=== PATIENT | male | born 1955 | race Caucasian/White ===

== ENCOUNTER 2021-08-25 14:08 | Observation (INO) ==
[2021-08-25 14:45] LABS: Basophils # (auto) 0.05 K/uL (0-0.2); Basophils % (auto) 0.9 %; Eosinophils # (auto) 0.02 K/uL (0-0.5); Eosinophils % (auto) 0.4 %; Hematocrit (blood only) 41.2 % (42-52); Immature Granulocytes # (auto) 0.01 K/uL (0.00-0.02); Immature Granulocytes % (auto) 0.2 %; Lymphocytes % (auto) 17.6 %; Mean Corpuscular Hemoglobin 30.8 pg (25-34); Mean Corpuscular Volume 90.5 fL (80-100); Mean Platelet Volume 12.1 fL (7.4-10.4); Monocytes # (auto) 0.39 K/uL (0.11-0.59); Monocytes % (auto) 6.9 %; Platelet Count 171 K/uL (130-400); RDW Coefficient of Variation 13.4 % (11.5-14.5); RDW Standard Deviation 44.4 fL (36.4-46.3); Red Blood Count 4.55 M/uL (4.7-6.1); White Blood Count 5.67 K/uL (4.8-10.8)
[2021-08-25 14:54] LABS: Partial Thromboplastin Time 27.1 Seconds (21.0-31.0)
[2021-08-25 15:08] LABS: Troponin I < 0.03 ng/ml (0-0.04)
--- NOTE | 2021-08-25 15:12 | XRay Report ---
TWO VIEW CHEST CLINICAL HISTORY: Atypical chest pain. FINDINGS: PA and lateral chest radiographs are obtained. No prior studies are available for compariso n at the time of dictation. The cardiomediastinal silhouette is unremarkable. The lungs and pleural spaces are clear. There is no pneumothorax. The bony thorax appears intact. There is mild S-shaped t horacolumbar scoliosis. IMPRESSION: No active disease in the chest. ACT 112: Negative or not required by law. Electronically signed by: Rubens Amaral M.D. 08/25/2021 3:11 PM
[2021-08-25 15:16] LABS: Alanine Aminotransferase 18 U/L (7-52); Albumin Globulin Ratio 1.6 (0.9-2); Albumin Level 4.2 gm/dl (3.4-5.0); Alkaline Phosphatase 64 U/L (34-104); Anion Gap 7 (3-11); Aspartate Aminotransferase 18 U/L (13-39); BUN Creatinine Ratio 26.6 (10-20); Bilirubin,Total 0.5 mg/dl (0.2-1.0); Blood Urea Nitrogen 21 mg/dl (6-23); Calcium 9.2 mg/dl (8.5-10.1); Carbon Dioxide 28 mmol/L (21-32); Chloride 105 mmol/L (98-107); Creatinine Clr Calc Pharmacy 99.8 ml/min; Est GFR (African American) 109.2 ml/min; Est GFR (Non-African American) 94.2 ml/min; Globulin 2.6 gm/dl (2.5-4.0); Glucose 110 mg/dl (70-99(Fasting)); Potassium 3.8 mmol/L (3.5-5.1); Sodium 140 mmol/L (136-145); Total Protein 6.8 gm/dl (6.0-8.3)
--- NOTE | 2021-08-25 16:09 | Electrocardiogram Report ---
Test Reason : Blood Pressure : / mmHG Vent. Rate : 064 BPM Atrial Rate : 064 BPM P-R Int : 160 ms QRS Dur : 096 ms QT Int : 386 ms P-R-T Axes : 084 054 061 degrees QTc Int : 398 ms Sinus rhythm with frequent Premature ventricular complexes Possible Left atrial enlargement Borderline ECG No previous ECGs available Confirmed by Bharath Raymond ([id number]) on 08/25/2021 4:08:39 PM Referred By: Confirmed By:Emory Raymond
[2021-08-25] MEDS ORDERED: NITROGLYCERIN 2% OINTMENT 30GM TUBE EXT STA (17:36)
[2021-08-25] MEDS ORDERED: ASPIRIN CHEW 324 MG PO STA (17:36)
--- NOTE | 2021-08-25 17:45 | Emergency Department Note ---
Impression & Plan Precordial chest pain, SOB (shortness of breath), Fatigue ED Provider Note NAME: KAYLEIGH RINALDI AGE: 65 SEX: M : 1955 ARRIVES VIA: Walk-In INFORMANT: [Patient] ED PROVIDER(S): [Rubens Larsen MD] CHIEF COMPLAINT: Chest pain, fatigue HISTORY OF PRESENT ILLNESS: The patient is a 65-year-old male who presents to the ER with several weeks of fatigue, shortness of breath and some chest discomfort. He notices exertion makes things a bit worse. The patient has a lot of cardiac risk factors. He has never though been diagnosed with coronary disease. The patient spoke with his doctors office today and was referred to the ER. His doctor's office did increase his blood pressure medication today over the phone. The patient has noticed some irregular heartbeats, almost some extra beats. Today, for the first time, after shoveling snow, he had some pressure in his chest which now seems to be gone. He was quite tired when he was shoveling snow and more short of breath than he should have been. The patient's father had an [place], patient has a strong family history of heart disease. He has high cholesterol and high blood pressure. Patient quit smoking 40 years ago. REVIEW OF SYSTEMS: See HPI for pertinent positives and negatives. A total of ten systems were reviewed and were otherwise negative. PMHx/PSHx: See Below SOCIAL HISTORY: See Below. PHYSICAL EXAM: GENERAL: Patient is in no acute distress. HEENT: No acute trauma, normocephalic atraumatic, mucous membranes moist, no nasal congestion, no scleral icterus. NECK: No stridor, no adenopathy, no meningismus, trachea is midline. LUNGS: Clear to auscultation bilaterally, no wheeze, no rhonchi, breath sounds equal. HEART: Without murmurs gallops or rubs, regular rate and rhythm. ABDOMEN: Soft, nontender, bowel sounds positive, no hernias, no peritonitis. EXTREMITIES: No cyanosis or edema, full range of motion of all the joints without pain or difficulty, no signs for acute trauma. NEUROLOGIC: Oriented x 3, no acute motor or sensory deficits, no focal weakness. SKIN: No rash, no jaundice, no diaphoresis. DIFFERENTIAL DIAGNOSIS: Cardiac ischemia, aortic dissection, pulmonary embolism, pneumothorax, pneumonia, pericarditis, myocarditis, esophageal rupture, GERD, cholecystitis, pancreatitis, musculoskeletal, as well as other pathologies. EMERGENCY DEPARTMENT COURSE/PROCEDURES: ECG: Indication was chest pain and shortness of breath. The ECG shows a sinus rhythm with PVCs. The rate is 64. There is no acute ST elevation. The QTc is 390. Continuous Cardiac Monitoring: An order was placed for continuous cardiac monitoring. The monitor shows a rate of 63 with sinus rhythm with PVCs. MEDICAL DECISION MAKING: There is no leukocytosis or concerning anemia. There is a normal platelet count. No coagulopathy. No significant electrolyte abnormality or kidney failure. No concerning liver enzyme elevation. Covid testing returned negative. ECG shows a sinus rhythm with PVCs, no obvious ischemia. Cardiac enzyme testing x1 is not consistent with acute cardiac injury. Chest x-ray does not show pneumonia or mediastinal widening. The patient presents with some increasing fatigue, some shortness of breath and some chest pressure. He does have multiple cardiac risk factors. The patient was given oral aspirin and nitroglycerin paste. He is currently r esting comfortably. I did speak with cardiology about the patient's presentation. A hospital stay and further cardiac work-up was felt warranted. I talked to the patient about his findings, I spoke with case management. The on-call hospitalist was consulted. Past Med/Surg History Medical History Asthma HX OF CHILDHOOD ASTHMA, PT STATES IF STILL PRESENT, WELL CONTROLLED. Family history of reaction to anesthesia PT STATES THAT HIS BROTHER AT AGE 16 (1963) DURING ANESTHESIA INDUCTION. PT STATES THAT HE HAD BEEN SICK WITH NON-STOP VOMITING AND THE PLAN WAS TO DO AN OPEN EXP LAP, BUT PATIENT PASSED AT INDUCTION. PT HAS HAD MULTIPLE PROCEDURES WITH BOTH MAC AND GA WITH NO COMPLICATION. PT STATES HIS BROTHER'S CERTIFICATE STATES CAUSE OF "DANGEROUS VIRUS". NO AUTOPSY WAS DONE PER PARENTS REQUEST. GERD (gastroesophageal reflux disease) Health care maintenance Hyperlipidemia Hypertension Surgical History History of colonoscopy History of foot surgery A TEENAGER History of tonsillectomy Family History Father Myocardial infarction Grandmother (Maternal) Kidney malignancy Mother Kidney malignancy Uncle Lung cancer Social History Smoking Status: Never smoker Second Hand Exposure: No; Hx Alcohol Use: No Hx Substance Use: No Preferred Language: Hong Konger Communication Ability: Effective Shaper And Presser Required: No Beliefs That Will Affect Care: None marital status: Current Living Situation: Spouse current occupational status: employed Feels Safe at Home: Yes Seatbelt Use: always Assistive Devices: Glasses Allergies Allergies Allergy/AdvReac Type Severity Reaction Status Date / Time No Known Allergies Allergy Verified 08/25/21 18:21 Home Meds Home Medications Medication Instructions Recorded Confirmed ascorbic acid (vitamin C) 1,000 mg 1 tab PO QAM 08/03/18 08/25/21 tablet (Vitamin C) rxmraywz-xja-wtyko acid 300 1 tab PO DAILY 06/12/19 08/25/21 mcg-lycopene 600 mcg-lutein 300 mcg tablet (Centrum Silver Men) aspirin 81 mg tablet,delayed 81 mg PO DAILY 08/25/21 08/25/21 release (Aspirin Low Dose) cholecalciferol (vitamin D3) 25 25 mcg PO DAILY 08/25/21 08/25/21 mcg (1,000 unit) tablet (Vitamin D3) Previous Rx's Medication Instructions Recorded lisinopril 5 mg tablet 5 mg PO DAILY #30 tab 06/25/21 Results & Data (ED) Vital Signs Vital Signs - 24 hr 08/25/21 14:15 08/25/21 17:15 08/25/21 17:30 Temperature 37.1 C Temperature Source Temporal Artery Scan Pulse Rate 68 64 63 Pulse Rate from SpO2 Sensor 58 L 69 Respiratory Rate 18 24 27 H Blood Pressure 158/86 H 158/98 H 142/94 H Blood Pressure Mean 110 118 110 Pulse Oximetry 96 99 100 Oxygen Delivery Method Room Air Room Air Room Air Sepsis Recent Fever Within 48 Hours No Sepsis New/Unexplained Change in Mental Status N/A Sepsis Action Taken by Nursing No Action Required 08/25/21 17:31 08/25/21 18:00 Temperature Temperature Source Pulse Rate 64 Pulse Rate from SpO2 Sensor Respiratory Rate 19 Blood Pressure 145/103 H Blood Pressure Mean 117 Pulse Oximetry 98 100 Oxygen Delivery Method Room Air Room Air Sepsis Recent Fever Within 48 Hours Sepsis New/Unexplained Change in Mental Status Sepsis Action Taken by [facility]pc Medications Current Medication List: was personally reviewed by me Laboratory Data Attestation: I reviewed the patient's lab results. Result diagrams: 08/25/21 14:27 08/25/21 14:27 Lab Results 08/25/21 08/25/21 08/25/21 Range/Units 14:27 14:27 14:27 WBC 5.67 (4.8-10.8) K/uL RBC 4.55 L (4.7-6.1) M/uL Hgb 14.0 (14.0-18.0) g/dL Hct 41.2 L (42-52) % MCV 90.5 (80-100) fL MCH 30.8 (25-34) pg MCHC 34.0 (32-36) g/dL RDW Std Deviation 44.4 (36.4-46.3) fL RDW Coeff of Saniya 13.4 (11.5-14.5) % Plt Count 171 (130-400) K/uL MPV 12.1 H (7.4-10.4) fL Immature Gran % (Auto) 0.2 % Neut % (Auto) 74.0 % Lymph % (Auto) 17.6 % [place] % (Auto) 6.9 % Eos % (Auto) 0.4 % Baso % (Auto) 0.9 % Neut # (Auto) 4.20 (1.4-6.5) K/uL Lymph # (Auto) 1.00 L (1.2-3.4) K/uL [place] # (Auto) 0.39 (0.11-0.59) K/uL Eos # (Auto) 0.02 (0-0.5) K/uL Baso # (Auto) 0.05 (0-0.2) K/uL Immature Gran # (Auto) 0.01 (0.00-0.02) K/uL PT 10.0 (9.0-12.0) Seconds INR 1.0 (0.9-1.1) APTT 27.1 (21.0-31.0) Seconds PTT Ratio 1.0 Sodium 140 (136-145) mmol/L Potassium 3.8 (3.5-5.1) mmol/L Chloride 105 (98-107) mmol/L Carbon Dioxide 28 (21-32) mmol/L Anion Gap 7 (3-11) BUN 21 (6-23) mg/dl Creatinine 0.79 (0.6-1.4) mg/dl Est Cr Clr Drug Dosing 99.8 ml/min Est GFR ( Amer) 109.2 ml/min Est GFR (Non-Af Amer) 94.2 ml/min BUN/Creatinine Ratio 26.6 H (10-20) Glucose 110 H (70-99(Fasting)) mg/dl Calcium 9.2 (8.5-10.1) mg/dl Total Bilirubin 0.5 (0.2-1.0) mg/dl AST 18 (13-39) U/L ALT 18 (7-52) U/L Alkaline Phosphatase 64 (34-104) U/L Troponin I < 0.03 (0-0.04) ng/ml Total Protein 6.8 (6.0-8.3) gm/dl Albumin 4.2 (3.4-5.0) gm/dl Globulin 2.6 (2.5-4.0) gm/dl Albumin/Globulin Ratio 1.6 (0.9-2) Administered Medications Discontinued Medications Aspirin (Aspirin Chew 324 Mg) 324 mg PO NOW STA Stop: 08/25/21 17:37 Last Admin: 08/25/21 17:50 Dose: 324 mg Documented by: [id number] Nitroglycerin (Nitroglycerin 2% Ointment 30gm Tube) 1 inch EXT NOW STA Stop: 08/25/21 17:37 Last Admin: 08/25/21 17:50 Dose: 1 inch Documented by: [id number] Imaging Data Radiologist's Impression: Chest X-Ray 08/25/21 14:20 TWO VIEW CHEST CLINICAL HISTORY: Atypical chest pain. FINDINGS: PA and lateral chest radiographs are obtained. No prior studies are available for comparison at the time of dictation. The cardiomediastinal marbella houette is unremarkable. The lungs and pleural spaces are clear. There is no pneumothorax. The bony thorax appears intact. There is mild S-shaped thoracolumbar scoliosis. IMPRESSION: No active disease in the chest. ACT 112: Negative or not required by law. Electronically signed by: Rubens Amaral M.D. 08/25/2021 3:11 PM Discharge Plan Visit Data Chief Complaint: Cardiac Assessment Stated Complaint: HIGH HP, IRREGULAR HR, CHEST TIGHTNESS ED Provider: Rubens Larsen Discharge Problem: Precordial chest pain, SOB (shortness of breath), Fatigue Patient Disposition: Admitted As Inpatient Condition: Fair Discharge Instructions Interventions: ED Discharge Assessment Last Done: 08/25/21 21:05
--- NOTE | 2021-08-25 18:18 | History & Physical Report ---
Date of Service August 25, 2021 Assessment & Plan (1) Chest pain: Plan: Heart score of 4 (age and risk factors), making him moderate risk. Patient and prefer admission and stress test in the AM. He has had 2 in the past (treadmill EKG and nuclear), but they are remote and therefore not contributory. - Trend 1 additional troponin (though first troponin was > 6 hours after symptoms, so very unlikley to be positive) - Stress echo in the AM - Telemetry - Continue home ASA - Can discuss resuming statin with PCP (2) Hypertension: Plan: BP in the ED was 180/100 in setting of discussing his cardiac care. No symptoms. - Continue home lisinopril - Adjustment per PCP (3) DVT prophylaxis: Plan: SCDs - Low DVT risk per admission calculator History of Present Illness Primary Care Provider: NO PCP 65yo M w/ hx HTN and HLD who presents with chest tightness and fatigue. He had Covid several months ago, and notes that he has had progressive fatigue and dyspnea on exertion for several weeks, though he is unclear as to the exact timeframe because of its gradual onset. Last week, he noted that he shoveled snow and was just "wiped out" for several hours afterward. This morning, he shoveled snow early in the morning (approx. 6:30am) and noted how wiped out he was and how short of breath he became with the exertion. This time though, he noted some chest tightness which radiated up to the right jaw which he describes as a "thickness" to the right jaw. He notes some mild lightheadedness as well, though no true dizziness. He went to work and felt that the symptoms took several hours to resolve. (Resolved around 10:30am.) He reports his resting as the only alleviating factor and no other exacerbating factors. Allergies Allergy/AdvReac Type Severity Reaction Status Date / Time No Known Allergies Allergy Verified 08/25/21 17:21 Home Medications Medication Instructions Recorded Confirmed Type ascorbic acid (vitamin C) 1,000 mg 1 tab PO QAM 08/03/18 07/18/21 History tablet (Vitamin C) aspirin 81 mg tablet,delayed 81 mg PO DAILY 08/03/18 07/18/21 History release (Aspir-) qhiwctsq-tyi-clpzs acid 300 1 tab PO DAILY 06/12/19 07/18/21 History mcg-lycopene 600 mcg-lutein 300 mcg tablet (Centrum Silver Men) lisinopril 5 mg tablet 5 mg PO DAILY #30 tab 06/25/21 07/18/21 Rx Past Med/Surg History Medical History (Updated 08/25/21 @ 18:17 by Lupillo Smith MD) Asthma HX OF CHILDHOOD ASTHMA, PT STATES IF STILL PRESENT, WELL CONTROLLED. Family history of reaction to anesthesia PT STATES THAT HIS BROTHER AT AGE 16 (1963) DURING ANESTHESIA INDUCTION. PT STATES THAT HE HAD BEEN SICK WITH NON-STOP VOMITING AND THE PLAN WAS TO DO AN OPEN EXP LAP, BUT PATIENT PASSED AT INDUCTION. PT HAS HAD MULTIPLE PROCEDURES WITH BOTH MAC AND GA WITH NO COMPLICATION. PT STATES HIS BROTHER'S CERTIFICATE STATES CAUSE OF "DANGEROUS VIRUS". NO AUTOPSY WAS DONE PER PARENTS REQUEST. GERD (gastroesophageal reflux disease) Health care maintenance Hyperlipidemia Hypertension Surgical History History of colonoscopy History of foot surgery A TEENAGER History of tonsillectomy Family History Father Myocardial infarction Grandmother (Maternal) Kidney malignancy Mother Kidney malignancy Uncle Lung cancer Social History Smoking Status: Never smoker Second Hand Exposure: No; Hx Alcohol Use: No Hx Substance Use: No Preferred Language: Georgian Communication Ability: Effective Financial Recording Clerk Required: No Beliefs That Will Affect Care: None marital status: Current Living Situation: Spouse current occupational status: employed Feels Safe at Home: Yes Seatbelt Use: always Assistive Devices: Glasses Review of Systems Review of Systems: All systems reviewed & are unremarkable except as noted in HPI & below Physical Exam Constitutional: WD/WN, vitals as above Eyes: EOM intact bilaterally; no conjunctival abnormality ENMT: external ear and nose normal, oropharynx normal Neck: trachea midline, no thyromegaly normal visual inspection Respiratory: normal respiratory effort, lungs clear to auscultation no respiratory distress Cardiovascular: RRR, no murmur, no edema Gastrointestinal (Abdomen): Inspection/Auscultation: abdomen normal to inspection; abdomen not distended Musculoskeletal: no cyanosis or clubbing, extremities motor strength 5/5 Skin: no rashes, warm and dry Neurologic: moves all extremities and awake Psychiatric: Orientation: alert, oriented to person and cooperative Results & Data Results & Data ([facility]) Vital Signs (Past 12 Hours) Vital Signs Temp Pulse Resp BP Pulse Ox 08/25/21 18:00 64 19 145/103 H 100 08/25/21 17:31 98 08/25/21 17:30 63 27 H 142/94 H 100 08/25/21 17:15 64 24 158/98 H 99 08/25/21 14:15 37.1 C 68 18 158/86 H 96 Code Status & VTE Plan VTE Prophylaxis Plan VTE Prophylaxis will be ordered: Yes PG Care Time/CCT Total # of Minutes Spent Total Time Spent with Patient: Total time spent is greater than 50% in coordination of care (as documented) at patient's floor/unit and/or counseling patient: Coding Level of Care Code INT OBSERVATION CARE 70M LVL 3 Diagnoses Chest pain R07.9 Hypertension I10 DVT prophylaxis Z29.9
[2021-08-26] MEDS: ACETAMINOPHEN 325 MG TAB PO PRN ×2 (00:04→04:38)
[2021-08-26 04:57] LABS: Hematocrit (blood only) 38.6 % (42-52); Mean Corpuscular Hemoglobin 30.4 pg (25-34); Mean Corpuscular Hgb Conc 33.7 g/dL (32-36); Mean Corpuscular Volume 90.4 fL (80-100); Mean Platelet Volume 12.1 fL (7.4-10.4); Platelet Count 154 K/uL (130-400); RDW Coefficient of Variation 13.6 % (11.5-14.5); Red Blood Count 4.27 M/uL (4.7-6.1); White Blood Count 5.02 K/uL (4.8-10.8)
[2021-08-26 05:25] LABS: Troponin I < 0.03 ng/ml (0-0.04)
[2021-08-26 05:32] LABS: Anion Gap 6 (3-11); BUN Creatinine Ratio 36.7 (10-20); Blood Urea Nitrogen 22 mg/dl (6-23); Calcium 8.7 mg/dl (8.5-10.1); Carbon Dioxide 26 mmol/L (21-32); Chloride 108 mmol/L (98-107); Creatinine Clr Calc Pharmacy 131.4 ml/min; Est GFR (African American) 122.3 ml/min; Est GFR (Non-African American) 105.5 ml/min; Glucose 93 mg/dl (70-99(Fasting)); Potassium 3.8 mmol/L (3.5-5.1); Sodium 140 mmol/L (136-145)
[2021-08-26] MEDS ORDERED: CEROVITE ADV FORMULA TAB PO SCH (09:00)
[2021-08-26] MEDS ORDERED: ASCORBIC ACID 500 MG TAB PO SCH (09:00)
[2021-08-26] MEDS ORDERED: lisinopril 5 MG TAB PO SCH (09:00)
[2021-08-26] MEDS ORDERED: ASPIRIN 81 MG ECTAB PO SCH (09:00)
--- NOTE | 2021-08-26 11:55 | XCELERA ---
[id number]
--- NOTE | 2021-08-26 12:16 | Discharge Summary ---
Date of Service August 26, 2021 Admission HPI Per Admitting Provider 65yo M w/ hx HTN and HLD who presents with chest tightness and fatigue. He had Covid several months ago, and notes that he has had progressive fatigue and dyspnea on exertion for several weeks, though he is unclear as to the exact timeframe because of its gradual onset. Last week, he noted that he shoveled snow and was just "wiped out" for several hours afterward. This morning, he shoveled snow early in the morning (approx. 6:30am) and noted how wiped out he was and how short of breath he became with the exertion. This time though, he noted some chest tightness which radiated up to the right jaw which he describes as a "thickness" to the right jaw. He notes some mild lightheadedness as well, though no true dizziness. He went to work and felt that the symptoms took several hours to resolve. (Resolved around 10:30am.) He reports his resting as the only alleviating factor and no other exacerbating factors. Principal Diagnosis chest pain Discharge Data Allergies Allergy/AdvReac Type Severity Reaction Status Date / Time No Known Allergies Allergy Verified 08/25/21 18:21 Consultations 08/25/21 17:36 ED Decision to Admit Stat Hospital Course (1) Chest pain: Heart score of 4 (age and risk factors), making him moderate risk. Patient and prefer admission and stress test in the AM. He has had 2 in the past (treadmill EKG and nuclear), but they are remote and therefore not contributory. - Trend 1 additional troponin (though first troponin was > 6 hours after symptoms, so very unlikley to be positive) - Threadmill stress test was done, which was normal, did not show any evidence of ischemia on EKG (2) Hypertension: BP in the ED was 180/100 in setting of discussing his cardiac care. No symptoms. - Continue home lisinopril Repeat 138/85 - Adjustment per PCP (3) DVT prophylaxis: SCDs - Low DVT risk per admission calculator discharge home to f/u with PCP Total Time Total Time Spent Total Time Spent (In Minutes): 35 Discharge Plan Discharge Items Patient Disposition: Home - Self-Care Reason For Visit: CHEST PAIN R/O Discharge Diagnosis: chest pain Condition on Discharge: Fair Activity: Resume your previous activity Non-emergency contact: Primary Care Provider Call non-emergency contact if: you have any medication questions Follow-up/Referrals: Harshil Chapa MD [Primary Care Provider] - Diet: Regular Addtl Attending Provider Instructions: please make appointment to follow up with your regular PCP Pending Studies at Discharge: No Stand-Alone Forms: My [email or web address], Smoking Cessation Medications and DC Order Prescriptions: Continued lisinopril 5 mg tablet 5 mg PO DAILY Qty: 30 RF: 2 Centrum Silver Men 300-600-300 mcg tablet 1 tab PO DAILY RF: 0 ascorbic acid (vitamin C) [Vitamin C] 1,000 mg Tablet 1 tab PO QAM RF: 0 aspirin [Aspirin Low Dose] 81 mg Tablet,Delayed Release (Dr/Ec) 81 mg PO DAILY RF: 0 cholecalciferol (vitamin D3) [Vitamin D3] 25 mcg (1,000 unit) Tablet 25 mcg PO DAILY RF: 0 Discharge Orders: Discharge Order (Routine); Ordered 08/26/21 Ordered By: Jason Carpenter Admission Data Admit Date/Time: 08/25/21 18:08 Attending Provider: Jason Carpenter Admit Provider: Lupillo Smith Primary Care Provider: Harshil Chapa Other Providers: Lupillo Smith Coding Level of Care Code D/C DAY MANAGEMENT >30 MINS Diagnoses Chest pain R07.9 Hypertension I10 DVT prophylaxis Z29.9 Time Spent (min) 35
--- NOTE | 2021-08-26 12:19 | Electrocardiogram Report ---
Test Reason : Blood Pressure : / mmHG Vent. Rate : 061 BPM Atrial Rate : 061 BPM P-R Int : 164 ms QRS Dur : 092 ms QT Int : 394 ms P-R-T Axes : 084 074 067 degrees QTc Int : 396 ms Sinus rhythm with occasional Premature ventricular complexes Otherwise normal ECG No previous ECGs available Confirmed by Bharath Raymond ([id number]) on 08/26/2021 12:19:33 PM Referred By: REFERRED SELF Confirmed By:Emory Raymond
== END 2021-08-26 14:12 | disposition home or self-care (01) ==
LOC: EDBD → EDINP 14:08 → MERGE 14:08 → ED 14:08 → SUATTDRO 18:08 → EDINP 21:05